=== PATIENT | male | born 1975 | race African-American/Black ===

== ENCOUNTER 2016-06-29 08:43 | Emergency (ER) | payer SELFPAY ==
[2016-06-29 09:10] LABS: BASO % 0.3 % (0.0-1.0); EOS # 0.1 K/mm3 (0.0-0.50); EOS % 1.4 % (0.0-3.0); LARGE UNSTAINED CELL # 0.2 K/mm3 (0.0-0.4); LARGE UNSTAINED CELL % 2.6 % (0.0-4.0); LYMPH # 1.5 K/mm3 (1.5-4.5); LYMPH % 22.5 % (24.0-44.0); MEAN CORPUSCULAR HEMOGLOBIN 31.6 pg (27.0-33.0); MEAN CORPUSCULAR HGB CONC 33.8 g/dl (32.0-36.5); MEAN CORPUSCULAR VOLUME 93.6 fl (80.0-96.0); MONO # 0.4 K/mm3 (0.0-0.8); MONO % 5.4 % (0.0-5.0); NEUTROPHILS # 4.6 K/mm3 (1.8-7.7); NEUTROPHILS % 67.8 % (36.0-66.0); PLATELET COUNT, AUTOMATED 193 k/mm3 (150-450); RED CELL DISTRIBUTION WIDTH 12.8 % (11.5-14.5); WHITE BLOOD COUNT 6.7 K/mm3 (4.0-10.0)
[2016-06-29] MEDS ORDERED: NITROGLYCERIN 0.4 MG SUBL TABLET As Ordered ONE (09:18)
[2016-06-29] MEDS ORDERED: ASPIRIN 81 MG CHEW TABLET As Ordered ONE ×2 (09:18→09:20)
[2016-06-29 09:47] LABS: ANION GAP 7 MEQ/L (8-16); BLOOD UREA NITROGEN 7 MG/DL (7-18); CALCIUM LEVEL 8.9 MG/DL (8.5-10.1); CARBON DIOXIDE LEVEL 29 MEQ/L (21-32); CHLORIDE LEVEL 104 MEQ/L (98-107); CREATININE FOR GFR 1.17 MG/DL (0.70-1.30); GLOMERULAR FILTRATION RATE > 60.0 (>60); GLUCOSE, FASTING 118 MG/DL (70-105); POTASSIUM SERUM 3.7 MEQ/L (3.5-5.1); SODIUM LEVEL 140 MEQ/L (136-145)
--- NOTE | 2016-06-29 10:26 | REP ---
Chest two views HISTORY: Chest pain Comparison: 06/14/2015 The lungs are clear. The heart is normal in size. The pulmonary vasculature is normal in appearance. The bony structure is intact. IMPRESSION: No acute disease. Signed by Marcos Petty MD 06/29/2016 10:16 A
--- NOTE | 2016-06-29 16:55 | EDDOCDS ---
Nurse's Notes [facility] Name: Wagner Vo Age: 41 yrs Sex: Male : 1975 Arrival Date: 06/29/2016 Time: 08:43 Bed OBSERVATION Private MD: Diagnosis: Chest pain, unspecified Presentation: 06/29 08:50 Presenting complaint: Patient states: substernal chest pain x 15 minutes,felt sweaty kpj and short of breath. Aspirin was not taken prior to arrival. Adult Sepsis Screening: The patient does not have new or worsening altered mentation. Patient's respiratory rate is less than 22. Systolic blood pressure is greater than 100. Patient has a qSOFA score of 0- Negative Sepsis Screen. Suicide/Homicide risk assessment- the patient denies having any suicidal and/or homicidal ideations and does not present with any other emotional, behavioral or mental health complaints. Status: Patient is not a cdl service technician or dependent. Transition of care: patient was not received from another setting of care. 08:50 Acuity: KADI Level 2 [facility] 08:50 Method Of Arrival: Walkin/Carried/Asstd [facility] Triage Assessment: 08:52 General: Appears well nourished, well groomed, Behavior is appropriate for age, kpj pleasant. Pain: Location: mid-sternal area Pain currently is 3 out of 10 on a pain scale. Quality of pain is described as heavy, pressure. Pt Declines HIV testing. The patient is triaged at the bedside. See Assessment in Nurses Notes section of ED record. Cardiovascular: Chest pain is described as Pain is 3 out of 10 on a pain scale. quality is pressure, squeezing, is located in substernal area radiates Does not radiate. episodes are continuous began 30 minutes prior to arrival. Historical: - Allergies: No known drug Allergies; - Home Meds: 1. none - PMHx: none; - PSHx: none; - Social history: Smoking status: Patient uses tobacco products, heavy tobacco smoker. No barriers to communication noted, The patient speaks fluent [place] Irish. - Family history: No immediate family members are acutely ill. - : The pt / caregiver states he / she is not on anticoagulants. Home medication list is obtained from the patient. - Exposure Risk Screening:: None identified. Screenin:56 Screening information is obtained from the patient. Fall risk: No risks identified. [facility] Assistance ADL's: requires no assistance with activities of daily living. Abuse/DV Screen: The patient / caregiver reports he/she is: not in a situation that causes fear, pain or injury. Nutritional screening: No deficits noted. Advance Directives: Currently, there is no health care proxy. There is no active DNR order. There is no living will. There is no Power of Director Medical Affairs. Advance directive information has not previously been placed in an [facility] medical record. Further advance directive information is declined. home support is adequate. Assessment: 08:56 General: Appears well nourished, well groomed, Behavior is appropriate for age, kpj pleasant. Pain: Location: mid-sternal area Pain currently is 3 out of 10 on a pain scale. Neurological: Level of Consciousness is awake, alert, Oriented to person, place, time. Cardiovascular: Capillary refill < 3 seconds in bilateral fingers Heart tones present Edema is absent. Pulses are all present. Rhythm is sinus rhythm No ectopy. Chest pain quality is pressure, squeezing, is located in substernal area radiates Does not radiate. episodes are continuous began 30 minutes prior to arrival. Respiratory: Airway is patent Respiratory effort is even, unlabored, Respiratory pattern is regular, symmetrical, Breath sounds with wheezes inspiratory expiratory bilaterally. GI: Abdomen is flat, non- distended Bowel sounds present X 4 quads. Abd is soft and non tender X 4 quads. Derm: Skin is pink, warm & dry. 09:33 General: Appears 3rd NTG administered. reports 2/10 discomfort without change in jmk characteristics of pain. Non radiating and not increasing with deep inspiraation.. 09:39 General: Appears states chest pain is essentially unchanged 2/10, but feels " more jmk relaxed" in chest area. does report a headache, but declined meds when offered.. 10:02 General: Appears Pain free. + fatigue. without resp distress. comfort measures jmk provided. Monitor SR. 11:08 General: Appears in no apparent distress, comfortable, Behavior is appropriate for age, cjh crying, pleasant. Pain: Denies pain. Neurological: Oriented to person, place, time. Cardiovascular: Capillary refill is brisk in bilateral fingers Rhythm is sinus rhythm. Respiratory: Airway is compromised Respiratory effort is even, unlabored, Respiratory pattern is regular, symmetrical. Derm: Skin is pink, warm & dry. 12:56 General: no new problems or complaints, OOB to bathroom gait steady no assist required, [facility] no complaints. meal tray provided, will continue to monitor. 15:00 General: Appears in no apparent distress, comfortable, Behavior is appropriate for age, jmb cooperative. Neurological: Level of Consciousness is awake, alert, obeys commands, Oriented to person, place, time. Respiratory: Airway is patent Respiratory effort is even, unlabored, Respiratory pattern is regular, symmetrical. 16:10 General: Appears in no apparent distress, comfortable, Behavior is appropriate for age, jmb cooperative. Pain: Denies pain. Neurological: Level of Consciousness is awake, alert, obeys commands, Oriented to person, place, time, Speech is normal, Facial symmetry appears normal, Facial symmetry: tongue is midline. Cardiovascular: Capillary refill < 3 seconds Heart tones present Pulses are all present. Rhythm is sinus rhythm No ectopy. Respiratory: Airway is patent Respiratory effort is even, unlabored, Respiratory pattern is regular, symmetrical, Breath sounds are clear bilaterally. GI: Abdomen is non- distended Bowel sounds present X 4 quads. Abd is soft and non tender X 4 quads. Derm: Skin is normal. 16:50 General: Patient instructed on discharge instructions. Patient [facility], patient stated no. IV discontinued per hospital policy. Patient signed discharge instructions. Patient discharged in stable condition. . Vital Signs: 08:52 BP 146 / 97; Pulse 80; Resp 18; Temp 98.3(TE); Pulse Ox 99% on R/A; Weight 72.57 kg [facility] (R); Height 5 ft. 9 in. (175.26 cm) (R); Pain 3/10; 09:31 BP 136 / 77 (auto/); jmk 09:31 Pulse 86 MON; Pulse Ox 94% ; k 16:52 BP 130 / 89; Pulse 69; Resp 18; Temp 97.5(O); Pulse Ox 97% on R/A; Pain 0/10; jmb 08:52 Body Mass Index 23.63 (72.57 kg, 175.26 cm) [facility] Vitals: 08:52 Log In Time: June 29, 2016 at 08:54. [facility] 08:56 Refer to monitor trend for complete vital signs trends. [facility] ED Course: 08:44 Patient visited by Geeta Lopez. mm15 08:44 Patient moved to Waiting mm15 08:48 Patient moved to 5 kpj 08:52 Triage Initiated kpj 08:56 Patient visited by Parag Parra PCA. jrd 08:56 Resting quietly. kpj 08:56 The patient / caregiver is instructed regarding the plan of care and ED course. Patient [facility] has correct armband on for positive identification. Bed in low position. Call light in reach. print finisher on. Pulse ox on. NIBP on. 08:56 EKG done. (by ED staff). Reviewed by Esteban Morfin MD. jrd 08:56 Inserted saline lock: 20 gauge in left antecubital area The patient tolerated the kpj procedure well. by Evangelist Zabala RN. 09:01 Basic Metabolic Profile Sent. kpj 09:01 CBC with Diff Sent. kpj 09:01 Cardiac Injury Profile Sent. kpj 09:01 Troponin Sent. kpj 09:03 Esteban Morfin MD is Attending Physician. br1 09:08 Patient visited by Esteban Morfin MD. br1 09:51 D-Dimer Quant Sent. jmk 10:03 Patient visited by Evangelist Zabala,MARISA. jmk 10:17 [facility] Payment Agreement was scanned into [employer] and attached to record. mm15 10:34 Chest, 2 View (pa\\E\\lat) Returned. EDMS 11:08 Patient visited by Vania Wise RN. cjh 11:38 Patient moved to OBSERVATION kpj 11:39 Patient moved to 5 rs6 11:39 Patient moved to Admit Hold rs6 11:39 Patient moved to OBSERVATION kpj 13:08 Patient visited by Esteban Morfin MD. br1 13:09 Patient visited by Esteban Morfin MD. br1 15:06 Patient visited by Ginger Moura PCA. rs6 15:06 EKG done. (by ED staff). Reviewed by Esteban Morfin MD. rs6 15:19 CARDIAC MARKER PANEL Sent. rs6 16:45 [facility] is Referral Physician. br1 16:45 Jonathan Baptiste MD is Referral Physician. br1 16:52 Discontinued lock intact, bleeding controlled, pressure dressing applied, No jmb redness/swelling at site. No procedures done that require assistance. Administered Medications: 09:20 Drug: Aspirin 324 mg [aspirin 81 mg chewable tablet (4 tabs)] Route: PO; hs1 09:32 Drug: Nitrostat 0.4 mg [Nitrostat 0.4 mg sublingual tablet (1 tabs)] Route: Sublingual; jmk Order Results: Lab Order: Basic Metabolic Profile; SPEC'M 06/29/16 09:00 Test: GLUCOSE, FASTING; Value: 118; Range: 70-105; Abnormal: Above high normal; Units: MG/DL; Status: F Test: BLOOD UREA NITROGEN; Value: 7; Range: 7-18; Units: MG/DL; Status: F Test: CREATININE FOR GFR; Value: 1.17; Range: 0.70-1.30; Units: MG/DL; Status: F Test: GLOMERULAR FILTRATION RATE; Value: > 60.0; Range: >60; Status: F Test: SODIUM LEVEL; Value: 140; Range: 136-145; Units: MEQ/L; Status: F Test: POTASSIUM SERUM; Value: 3.7; Range: 3.5-5.1; Units: MEQ/L; Status: F Test: CHLORIDE LEVEL; Value: 104; Range: 98-107; Units: MEQ/L; Status: F Test: CARBON DIOXIDE LEVEL; Value: 29; Range: 21-32; Units: MEQ/L; Status: F Test: ANION GAP; Value: 7; Range: 8-16; Abnormal: Below low normal; Units: MEQ/L; Status: F Test: CALCIUM LEVEL; Value: 8.9; Range: 8.5-10.1; Units: MG/DL; Status: F Test Note: ; Units are mL/min/1.73 m2 Chronic Kidney Disease Staging per NKF: Stage I & II GFR >=60 Normal to Mildly Decreased Stage III GFR 30-59 Moderately Decreased Stage IV GFR 15-29 Severely Decreased Stage V GFR <15 Very Little GFR Left ESRD GFR <15 on LEAD DATABASE ADMINISTRATOR Lab Order: CBC with Diff; SPEC'M 06/29/16 09:00 Test: WHITE BLOOD COUNT; Value: 6.7; Range: 4.0-10.0; Units: K/mm3; Status: F Test: RED BLOOD COUNT; Value: 5.36; Range: 4.30-6.10; Units: M/mm3; Status: F Test: HEMOGLOBIN; Value: 16.9; Range: 14.0-18.0; Units: g/dl; Status: F Test: HEMATOCRIT; Value: 50.2; Range: 42.0-52.0; Units: %; Status: F Test: MEAN CORPUSCULAR VOLUME; Value: 93.6; Range: 80.0-96.0; Units: fl; Status: F Test: MEAN CORPUSCULAR HEMOGLOBIN; Value: 31.6; Range: 27.0-33.0; Units: pg; Status: F Test: MEAN CORPUSCULAR HGB CONC; Value: 33.8; Range: 32.0-36.5; Units: g/dl; Status: F Test: RED CELL DISTRIBUTION WIDTH; Value: 12.8; Range: 11.5-14.5; Units: %; Status: F Test: PLATELET COUNT, AUTOMATED; Value: 193; Range: 150-450; Units: k/mm3; Status: F Test: NEUTROPHILS %; Value: 67.8; Range: 36.0-66.0; Abnormal: Above high normal; Units: %; Status: F Test: LYMPH %; Value: 22.5; Range: 24.0-44.0; Abnormal: Below low normal; Units: %; Status: F Test: MONO %; Value: 5.4; Range: 0.0-5.0; Abnormal: Above high normal; Units: %; Status: F Test: EOS %; Value: 1.4; Range: 0.0-3.0; Units: %; Status: F Test: BASO %; Value: 0.3; Range: 0.0-1.0; Units: %; Status: F Test: LARGE UNSTAINED CELL %; Value: 2.6; Range: 0.0-4.0; Units: %; Status: F Test: NEUTROPHILS #; Value: 4.6; Range: 1.8-7.7; Units: K/mm3; Status: F Test: LYMPH #; Value: 1.5; Range: 1.5-4.5; Units: K/mm3; Status: F Test: MONO #; Value: 0.4; Range: 0.0-0.8; Units: K/mm3; Status: F Test: EOS #; Value: 0.1; Range: 0.0-0.50; Units: K/mm3; Status: F Test: BASO #; Value: 0.0; Range: 0.0-0.2; Units: K/mm3; Status: F Test: LARGE UNSTAINED CELL #; Value: 0.2; Range: 0.0-0.4; Units: K/mm3; Status: F Lab Order: Cardiac Injury Profile; [facility] 09:00 Test: CPK CREATINE PHOSPHOKINASE; Value: 192; Range: 39-308; Units: U/L; Status: F Test: CK-MB VALUE MASS; Value: 1.8; Range: 0.0-3.6; Units: NG/ML; Status: F Test: MB/CK RELATIVE INDEX; Value: 0.93; Range: < OR =4; Status: F Test Note: ; DIAGNOSIS CRITERIA MMB ng/ml Relative Index (RI) NON-AMI < or = 5 N/A WOLF ZONE > 5 < or = 4 AMI > 5 > 4 Lab Order: Troponin; 06/29/16 09:00 Test: TROPONIN I; Value: < 0.02; Range: < 0.10; Units: NG/ML; Status: F Test Note: ; Troponin I Reference Interval for [employer] LOCI: 99th Percentile= 0.00-0.045 ng/ml Risk Stratification: <= 0.10 ng/ml Decreased Risk for Adverse Clinical Events. 0.10-1.50 ng/ml Increased Risk for Adverse Clinical Events. Evaluation of additional criterion and/or repeat testing in 2-6 hours is suggested to rule out myocardial damage. >= 1.50 ng/ml Indicative of Myocardial Injury. Lab Order: D-Dimer Quant; 06/29/16 09:00 Test: D-DIMER QUANT; Value: < 270.0; Range: <500; Units: ng/ml; Status: F Lab Order: CARDIAC MARKER PANEL; [facility] 06/29/16 15:19 Test: CPK CREATINE PHOSPHOKINASE; Value: 176; Range: 39-308; Units: U/L; Status: F Test: CK-MB VALUE MASS; Value: 1.4; Range: 0.0-3.6; Units: NG/ML; Status: F Test: MB/CK RELATIVE INDEX; Value: 0.79; Range: < OR =4; Status: F Test: TROPONIN I; Value: < 0.02; Range: < 0.10; Units: NG/ML; Status: F Test Note: ; DIAGNOSIS CRITERIA MMB ng/ml Relative Index (RI) NON-AMI < or = 5 N/A WOLF ZONE > 5 < or = 4 AMI > 5 > 4 Radiology Order: Chest, 2 View (pa\\E\\lat) Test: Chest, 2 View (pa\\E\\lat) REASON FOR EXAMINATION: Chest Pain; Chest two views; ; HISTORY: Chest pain; ; Comparison: 06/14/2015; ; The lungs are clear. The heart is normal in size. The pulmonary vasculature is; normal in appearance. The bony structure is intact.; ; IMPRESSION: No acute disease.; ; ; Signed by; Marcos Petty MD 06/29/2016 10:16 A; Outcome: 16:45 Discharge ordered by Provider. br1 16:52 Discharge Assessment: Patient awake, alert and oriented x 3. No cognitive and/or jmb functional deficits noted. Patient verbalized understanding of disposition instructions. Patient awake and alert. obeys commands, Oriented to person, place and time. Patient verbalized understanding of disposition instructions. Patient has no functional deficits. patient administered narcotics - no. The following High Risk Discharge criteria are identified: None. Discharged to home ambulatory, with significant other. Condition: stable Condition: improved. Discharge instructions given to patient, Instructed on discharge instructions, follow up and referral plans. Demonstrated understanding of instructions, Pt was receptive of discharge instructions/ teaching. No special radiology studies were completed. Property sent home with patient. 16:53 Patient left the ED. jmb Signatures: Dispatcher [employer] EDMS Debbie Portillo RN Evangelist DeckerRN Esteban Henderson MD MD br1 Dominique Vasques RN RN hs1 Vania Wise RN RN [facility] Geeta Lopez mm15 Yoni AguiarRN RN jmb Parag Parra, WELDER FITTER WELDER FITTER jrd Moura, Ginger, WELDER FITTER WELDER FITTER rs6 MTDD
--- NOTE | 2016-06-29 16:55 | EDDOCDS ---
Physician Documentation [facility] Name: Wagner Vo Age: 41 yrs Sex: Male : 1975 Arrival Date: 06/29/2016 Time: 08:43 Bed OBSERVATION Private MD: Disposition: 06/29/16 16:45 Discharged to Home/Self Care. Impression: Chest pain, unspecified. - Condition is Stable. - Discharge Instructions: Nonspecific Chest Pain, Smoking Cessation. - Medication Reconciliation, Local Pharmacy Hours form. - Follow up: [facility]; When: 2 - 3 days; Reason: Recheck today's complaints. Follow up: Jonathan Baptiste MD; When: 2 - 3 days; Reason: Recheck today's complaints. - Problem is new. - Symptoms are resolved. - Notes: You were seen in the ED for chest pain. Bloodwork along with EKG of the heart and chest Xray showed no acute findings at this time. We have consulted with Cardiology as well. As you are feeling better you may return home to follow up with a primary care doctor as well as Cardiology for further evaluation and treatment. Please call the [facility] and Dr. Baptiste of Cardiology to arrange these appointments. Return to the ED for any return of chest pain, trouble breathing, lightheadedness, loss of consciousness, or any other concerns. Historical: - Allergies: No known drug Allergies; - Home Meds: 1. none - PMHx: none; - PSHx: none; - Social history: Smoking status: Patient uses tobacco products, heavy tobacco smoker. No barriers to communication noted, The patient speaks fluent Finnish. - Family history: No immediate family members are acutely ill. - : The pt / caregiver states he / she is not on anticoagulants. Home medication list is obtained from the patient. - Exposure Risk Screening:: None identified. Vital Signs: 06/29 08:52 BP 146 / 97; Pulse 80; Resp 18; Temp 98.3(TE); Pulse Ox 99% on R/A; Weight 72.57 kg / kpj 159.99 lbs (R); Height 5 ft. 9 in. (175.26 cm) (R); Pain 3/10; 09:31 BP 136 / 77 (auto/); jmk 09:31 Pulse 86 MON; Pulse Ox 94% ; jmk 16:52 BP 130 / 89; Pulse 69; Resp 18; Temp 97.5(O); Pulse Ox 97% on R/A; Pain 0/10; jmb 08:52 Body Mass Index 23.63 (72.57 kg, 175.26 cm) kpj MDM: 08:49 ECG WITH READING ER PHYS+CARDIAG ordered. EDMS 08:54 Balloon Design Printer/Pulse Ox/q 30 min VS ordered. br1 08:54 IV Saline Lock ordered. br1 08:54 Rhythm Strip to chart ordered. br1 08:54 Undress patient appropriately for examination ordered. br1 08:55 Basic Metabolic Profile Ordered. EDMS 08:56 CBC with Diff Ordered. EDMS 08:56 Cardiac Injury Profile Ordered. EDMS 08:56 Troponin Ordered. EDMS 08:56 Chest, 2 View (pa\E\lat) Ordered. EDMS 09:09 Aspirin 324 mg PO once ordered. br1 09:09 Nitrostat 0.4 mg Sublingual every 5 minutes; hold if SBP<90mmHg.Document Pain Score br1 Response to Each Dose x3 ordered. 09:24 CBC with Diff Reviewed. br1 09:35 Financial registration complete. mm15 09:45 D-Dimer Quant Ordered. EDMS 10:17 [facility] Payment Agreement was scanned into [employer] and attached to record. mm15 11:08 Basic Metabolic Profile Reviewed. br1 11:08 Cardiac Injury Profile Reviewed. br1 11:08 Troponin Reviewed. br1 11:08 D-Dimer Quant Reviewed. br1 11:08 Chest, 2 View (pa\E\lat) Reviewed. br1 11:10 Admit to ED Observation status ordered. br1 11:10 Repeat EKG (put time details section) ordered. br1 11:10 Redraw CIP &Troponin (put time in details section) ordered. br1 11:11 REGULAR+DIET ordered. EDMS 11:36 Redraw CIP &Troponin (put time in details section) complete. rs6 11:36 Repeat EKG (put time details section) complete. rs6 11:38 Admit to ED Observation status complete. kpj 11:38 CARDIAC MARKER PANEL Ordered. EDMS 11:39 ECG WITH READING ER PHYS ordered. EDMS 16:12 CARDIAC MARKER PANEL Reviewed. br1 Administered Medications: 09:20 Drug: Aspirin 324 mg [aspirin 81 mg chewable tablet (4 tabs)] Route: PO; hs1 09:32 Drug: Nitrostat 0.4 mg [Nitrostat 0.4 mg sublingual tablet (1 tabs)] Route: Sublingual; brittny Signatures: Dispatcher [employer] Debbie Covarrubias, RN RN Esteban Tyelr MD MD br1 Geeta Lopez mm15 Yoni Aguiar RN RN Ginger Joshi, ZACH POLISH MAKER rs6 Evangelist Zabala RNk Dominique Vasques RN hs1 The chart was reviewed and I authenticate all verbal orders and agree with the evaluation and treatment provided.Attachments: 10:17 [facility] Payment Agreement mm15 MTDD
--- NOTE | 2016-06-29 21:51 | ECGEPIP ---
Stationary ECG Study [facility] - ED Test Date: 2016-06-29 Pat Name: MARGUERITE GARCIA Department: Room: - Gender: M [employer]: KEAGAN : 1975 Requested By: LISS Rodriguez Order Number: [id number] Reading MD: Tammi Benjamin Measurements Intervals [place] Rate: 80 P: 70 TX: 180 QRS: 36 QRSD: 86 T: 47 QT: 371 QTc: 428 Interpretive Statements SINUS RHYTHM POSSIBLE RIGHT VENTRICULAR CONDUCTION DELAY NO PRIOR FOR COMPARISON Electronically Signed On 06-29-2016 21:50:38 EST by Tammi Benjamin
--- NOTE | 2016-07-01 17:54 | EDDOCDS ---
Nurse's Notes [facility] Name: Wagner Vo Age: 41 yrs Sex: Male : 1975 Arrival Date: 06/29/2016 Time: 08:43 Bed OBSERVATION Private MD: Diagnosis: Chest pain, unspecified Presentation: 06/29 08:50 Presenting complaint: Patient states: substernal chest pain x 15 minutes,felt sweaty kpj and short of breath. Aspirin was not taken prior to arrival. Adult Sepsis Screening: The patient does not have new or worsening altered mentation. Patient's respiratory rate is less than 22. Systolic blood pressure is greater than 100. Patient has a qSOFA score of 0- Negative Sepsis Screen. Suicide/Homicide risk assessment- the patient denies having any suicidal and/or homicidal ideations and does not present with any other emotional, behavioral or mental health complaints. Status: Patient is not a customer service teller or dependent. Transition of care: patient was not received from another setting of care. 08:50 Acuity: KADI Level 2 [facility] 08:50 Method Of Arrival: Walkin/Carried/Asstd [facility] Triage Assessment: 08:52 General: Appears well nourished, well groomed, Behavior is appropriate for age, kpj pleasant. Pain: Location: mid-sternal area Pain currently is 3 out of 10 on a pain scale. Quality of pain is described as heavy, pressure. Pt Declines HIV testing. The patient is triaged at the bedside. See Assessment in Nurses Notes section of ED record. Cardiovascular: Chest pain is described as Pain is 3 out of 10 on a pain scale. quality is pressure, squeezing, is located in substernal area radiates Does not radiate. episodes are continuous began 30 minutes prior to arrival. Historical: - Allergies: No known drug Allergies; - Home Meds: 1. none - PMHx: none; - PSHx: none; - Social history: Smoking status: Patient uses tobacco products, heavy tobacco smoker. No barriers to communication noted, The patient speaks fluent Swedish. - Family history: No immediate family members are acutely ill. - : The pt / caregiver states he / she is not on anticoagulants. Home medication list is obtained from the patient. - Exposure Risk Screening:: None identified. Screenin:56 Screening information is obtained from the patient. Fall risk: No risks identified. [facility] Assistance ADL's: requires no assistance with activities of daily living. Abuse/DV Screen: The patient / caregiver reports he/she is: not in a situation that causes fear, pain or injury. Nutritional screening: No deficits noted. Advance Directives: Currently, there is no health care proxy. There is no active DNR order. There is no living will. There is no Power of Filter Tank Tender Helper Head. Advance directive information has not previously been placed in an [facility] medical record. Further advance directive information is declined. home support is adequate. Assessment: 08:56 General: Appears well nourished, well groomed, Behavior is appropriate for age, kpj pleasant. Pain: Location: mid-sternal area Pain currently is 3 out of 10 on a pain scale. Neurological: Level of Consciousness is awake, alert, Oriented to person, place, time. Cardiovascular: Capillary refill < 3 seconds in bilateral fingers Heart tones present Edema is absent. Pulses are all present. Rhythm is sinus rhythm No ectopy. Chest pain quality is pressure, squeezing, is located in substernal area radiates Does not radiate. episodes are continuous began 30 minutes prior to arrival. Respiratory: Airway is patent Respiratory effort is even, unlabored, Respiratory pattern is regular, symmetrical, Breath sounds with wheezes inspiratory expiratory bilaterally. GI: Abdomen is flat, non- distended Bowel sounds present X 4 quads. Abd is soft and non tender X 4 quads. Derm: Skin is pink, warm & dry. 09:33 General: Appears 3rd NTG administered. reports 2/10 discomfort without change in jmk characteristics of pain. Non radiating and not increasing with deep inspiraation.. 09:39 General: Appears states chest pain is essentially unchanged 2/10, but feels " more jmk relaxed" in chest area. does report a headache, but declined meds when offered.. 10:02 General: Appears Pain free. + fatigue. without resp distress. comfort measures jmk provided. Monitor SR. 11:08 General: Appears in no apparent distress, comfortable, Behavior is appropriate for age, cjh crying, pleasant. Pain: Denies pain. Neurological: Oriented to person, place, time. Cardiovascular: Capillary refill is brisk in bilateral fingers Rhythm is sinus rhythm. Respiratory: Airway is compromised Respiratory effort is even, unlabored, Respiratory pattern is regular, symmetrical. Derm: Skin is pink, warm & dry. 12:56 General: no new problems or complaints, OOB to bathroom gait steady no assist required, [facility] no complaints. meal tray provided, will continue to monitor. 15:00 General: Appears in no apparent distress, comfortable, Behavior is appropriate for age, jmb cooperative. Neurological: Level of Consciousness is awake, alert, obeys commands, Oriented to person, place, time. Respiratory: Airway is patent Respiratory effort is even, unlabored, Respiratory pattern is regular, symmetrical. 16:10 General: Appears in no apparent distress, comfortable, Behavior is appropriate for age, jmb cooperative. Pain: Denies pain. Neurological: Level of Consciousness is awake, alert, obeys commands, Oriented to person, place, time, Speech is normal, Facial symmetry appears normal, Facial symmetry: tongue is midline. Cardiovascular: Capillary refill < 3 seconds Heart tones present Pulses are all present. Rhythm is sinus rhythm No ectopy. Respiratory: Airway is patent Respiratory effort is even, unlabored, Respiratory pattern is regular, symmetrical, Breath sounds are clear bilaterally. GI: Abdomen is non- distended Bowel sounds present X 4 quads. Abd is soft and non tender X 4 quads. Derm: Skin is normal. 16:50 General: Patient instructed on discharge instructions. Patient asked if there were any [facility] questions regarding discharge, patient stated no. IV discontinued per hospital policy. Patient signed discharge instructions. Patient discharged in stable condition. . Vital Signs: 08:52 BP 146 / 97; Pulse 80; Resp 18; Temp 98.3(TE); Pulse Ox 99% on R/A; Weight 72.57 kg [facility] (R); Height 5 ft. 9 in. (175.26 cm) (R); Pain 3/10; 09:31 BP 136 / 77 (auto/); jmk 09:31 Pulse 86 MON; Pulse Ox 94% ; k 16:52 BP 130 / 89; Pulse 69; Resp 18; Temp 97.5(O); Pulse Ox 97% on R/A; Pain 0/10; jmb 08:52 Body Mass Index 23.63 (72.57 kg, 175.26 cm) [facility] Vitals: 08:52 Log In Time: June 29, 2016 at 08:54. [facility] 08:56 Refer to monitor trend for complete vital signs trends. [facility] ED Course: 08:44 Patient visited by Geeta Lopez. mm15 08:44 Patient moved to Waiting mm15 08:48 Patient moved to 5 kpj 08:52 Triage Initiated kpj 08:56 Patient visited by Parag Parra PCA. jrd 08:56 Resting quietly. kpj 08:56 The patient / caregiver is instructed regarding the plan of care and ED course. Patient [facility] has correct armband on for positive identification. Bed in low position. Call light in reach. monitoring analyst on. Pulse ox on. NIBP on. 08:56 EKG done. (by ED staff). Reviewed by Liss Morfin MD. jrd 08:56 Inserted saline lock: 20 gauge in left antecubital area The patient tolerated the kpj procedure well. by Evangelist Zabala RN. 09:01 Basic Metabolic Profile Sent. kpj 09:01 CBC with Diff Sent. kpj 09:01 Cardiac Injury Profile Sent. kpj 09:01 Troponin Sent. kpj 09:03 Liss Morfin MD is Attending Physician. br1 09:08 Patient visited by Liss Morfin MD. br1 09:51 D-Dimer Quant Sent. jmk 10:03 Patient visited by Evangelist Zabala,MARISA. jmk 10:17 [facility] Payment Agreement was scanned into Flo[employer] and attached to record. mm15 10:34 Chest, 2 View (pa\\E\\lat) Returned. EDMS 11:08 Patient visited by aVnia Wise RN. cjh 11:38 Patient moved to OBSERVATION kpj 11:39 Patient moved to 5 rs6 11:39 Patient moved to Admit Hold rs6 11:39 Patient moved to OBSERVATION kpj 13:08 Patient visited by Liss Morfin MD. br1 13:09 Patient visited by Liss Morfin MD. br1 15:06 Patient visited by Ginger Moura PCA. rs6 15:06 EKG done. (by ED staff). Reviewed by Liss Morfin MD. rs6 15:19 CARDIAC MARKER PANEL Sent. rs6 16:45 [facility] is Referral Physician. br1 16:45 Jonathan Baptiste MD is Referral Physician. br1 16:52 Discontinued lock intact, bleeding controlled, pressure dressing applied, No jmb redness/swelling at site. No procedures done that require assistance. 22:11 EKG-ADULT Returned. EDMS 06/30 13:35 T-Sheet-- Draft Copy was scanned into Floobits and attached to record. 13:35 ECG/EKG was scanned into [employer] and attached to record. gb 13:35 Radiology Report was scanned into [employer] and attached to record. gb Administered Medications: 06/29 09:20 Drug: Aspirin 324 mg [aspirin 81 mg chewable tablet (4 tabs)] Route: PO; hs1 09:32 Drug: Nitrostat 0.4 mg [Nitrostat 0.4 mg sublingual tablet (1 tabs)] Route: Sublingual; jmk Order Results: Lab Order: Basic Metabolic Profile; SPEC'M 06/29/16 09:00 Test: GLUCOSE, FASTING; Value: 118; Range: 70-105; Abnormal: Above high normal; Units: MG/DL; Status: F Test: BLOOD UREA NITROGEN; Value: 7; Range: 7-18; Units: MG/DL; Status: F Test: CREATININE FOR GFR; Value: 1.17; Range: 0.70-1.30; Units: MG/DL; Status: F Test: GLOMERULAR FILTRATION RATE; Value: > 60.0; Range: >60; Status: F Test: SODIUM LEVEL; Value: 140; Range: 136-145; Units: MEQ/L; Status: F Test: POTASSIUM SERUM; Value: 3.7; Range: 3.5-5.1; Units: MEQ/L; Status: F Test: CHLORIDE LEVEL; Value: 104; Range: 98-107; Units: MEQ/L; Status: F Test: CARBON DIOXIDE LEVEL; Value: 29; Range: 21-32; Units: MEQ/L; Status: F Test: ANION GAP; Value: 7; Range: 8-16; Abnormal: Below low normal; Units: MEQ/L; Status: F Test: CALCIUM LEVEL; Value: 8.9; Range: 8.5-10.1; Units: MG/DL; Status: F Test Note: ; Units are mL/min/1.73 m2 Chronic Kidney Disease Staging per NKF: Stage I & II GFR >=60 Normal to Mildly Decreased Stage III GFR 30-59 Moderately Decreased Stage IV GFR 15-29 Severely Decreased Stage V GFR <15 Very Little GFR Left ESRD GFR <15 on FARM OPERATIONS TECHNICAL DIRECTOR Lab Order: CBC with Diff; SPEC'M 06/29/16 09:00 Test: WHITE BLOOD COUNT; Value: 6.7; Range: 4.0-10.0; Units: K/mm3; Status: F Test: RED BLOOD COUNT; Value: 5.36; Range: 4.30-6.10; Units: M/mm3; Status: F Test: HEMOGLOBIN; Value: 16.9; Range: 14.0-18.0; Units: g/dl; Status: F Test: HEMATOCRIT; Value: 50.2; Range: 42.0-52.0; Units: %; Status: F Test: MEAN CORPUSCULAR VOLUME; Value: 93.6; Range: 80.0-96.0; Units: fl; Status: F Test: MEAN CORPUSCULAR HEMOGLOBIN; Value: 31.6; Range: 27.0-33.0; Units: pg; Status: F Test: MEAN CORPUSCULAR HGB CONC; Value: 33.8; Range: 32.0-36.5; Units: g/dl; Status: F Test: RED CELL DISTRIBUTION WIDTH; Value: 12.8; Range: 11.5-14.5; Units: %; Status: F Test: PLATELET COUNT, AUTOMATED; Value: 193; Range: 150-450; Units: k/mm3; Status: F Test: NEUTROPHILS %; Value: 67.8; Range: 36.0-66.0; Abnormal: Above high normal; Units: %; Status: F Test: LYMPH %; Value: 22.5; Range: 24.0-44.0; Abnormal: Below low normal; Units: %; Status: F Test: MONO %; Value: 5.4; Range: 0.0-5.0; Abnormal: Above high normal; Units: %; Status: F Test: EOS %; Value: 1.4; Range: 0.0-3.0; Units: %; Status: F Test: BASO %; Value: 0.3; Range: 0.0-1.0; Units: %; Status: F Test: LARGE UNSTAINED CELL %; Value: 2.6; Range: 0.0-4.0; Units: %; Status: F Test: NEUTROPHILS #; Value: 4.6; Range: 1.8-7.7; Units: K/mm3; Status: F Test: LYMPH #; Value: 1.5; Range: 1.5-4.5; Units: K/mm3; Status: F Test: MONO #; Value: 0.4; Range: 0.0-0.8; Units: K/mm3; Status: F Test: EOS #; Value: 0.1; Range: 0.0-0.50; Units: K/mm3; Status: F Test: BASO #; Value: 0.0; Range: 0.0-0.2; Units: K/mm3; Status: F Test: LARGE UNSTAINED CELL #; Value: 0.2; Range: 0.0-0.4; Units: K/mm3; Status: F Lab Order: Cardiac Injury Profile; [facility]' 06/29/16 09:00 Test: CPK CREATINE PHOSPHOKINASE; Value: 192; Range: 39-308; Units: U/L; Status: F Test: CK-MB VALUE MASS; Value: 1.8; Range: 0.0-3.6; Units: NG/ML; Status: F Test: MB/CK RELATIVE INDEX; Value: 0.93; Range: < OR =4; Status: F Test Note: ; DIAGNOSIS CRITERIA MMB ng/ml Relative Index (RI) NON-AMI < or = 5 N/A WOLF ZONE > 5 < or = 4 AMI > 5 > 4 Lab Order: Troponin; [facility] 06/29/16 09:00 Test: TROPONIN I; Value: < 0.02; Range: < 0.10; Units: NG/ML; Status: F Test Note: ; Troponin I Reference Interval for [employer] LOCI: 99th Percentile= 0.00-0.045 ng/ml Risk Stratification: <= 0.10 ng/ml Decreased Risk for Adverse Clinical Events. 0.10-1.50 ng/ml Increased Risk for Adverse Clinical Events. Evaluation of additional criterion and/or repeat testing in 2-6 hours is suggested to rule out myocardial damage. >= 1.50 ng/ml Indicative of Myocardial Injury. Lab Order: D-Dimer Quant; SPEC 06/29/16 09:00 Test: D-DIMER QUANT; Value: < 270.0; Range: <500; Units: ng/ml; Status: F Lab Order: CARDIAC MARKER PANEL; SPEC'M 06/29/16 15:19 Test: CPK CREATINE PHOSPHOKINASE; Value: 176; Range: 39-308; Units: U/L; Status: F Test: CK-MB VALUE MASS; Value: 1.4; Range: 0.0-3.6; Units: NG/ML; Status: F Test: MB/CK RELATIVE INDEX; Value: 0.79; Range: < OR =4; Status: F Test: TROPONIN I; Value: < 0.02; Range: < 0.10; Units: NG/ML; Status: F Test Note: ; DIAGNOSIS CRITERIA MMB ng/ml Relative Index (RI) NON-AMI < or = 5 N/A WOLF ZONE > 5 < or = 4 AMI > 5 > 4 Radiology Order: EKG-ADULT Test: EKG-ADULT REASON FOR EXAMINATION: Chest Pain; Stationary ECG Study; [facility] - ED; ; Test Date: 2016-06-29; Pat Name: [facility] Department:; Room: -; Gender: Model Maker Scale: KEAGAN; : 1975 Requested By: LISS Rodriguez; Order Number: [id number] Reading MD: Tammi Benjamin; Measurements; Intervals [place]; Rate: 80 P: 70; NM: 180 QRS: 36; QRSD: 86 T: 47; QT: 371; QTc: 428; Interpretive Statements; SINUS RHYTHM; POSSIBLE RIGHT VENTRICULAR CONDUCTION DELAY; NO PRIOR FOR COMPARISON; Electronically Signed On 06-29-2016 21:50:38 EST by Tammi Benjamin; Radiology Order: Chest, 2 View (pa\\E\\lat) Test: Chest, 2 View (pa\\E\\lat) REASON FOR EXAMINATION: Chest Pain; Chest two views; ; HISTORY: Chest pain; ; Comparison: 06/14/2015; ; The lungs are clear. The heart is normal in size. The pulmonary vasculature is; normal in appearance. The bony structure is intact.; ; IMPRESSION: No acute disease.; ; ; Signed by; Marcos Petty MD 06/29/2016 10:16 A; Outcome: 16:45 Discharge ordered by Provider. br1 16:52 Discharge Assessment: Patient awake, alert and oriented x 3. No cognitive and/or jmb functional deficits noted. Patient verbalized understanding of disposition instructions. Patient awake and alert. obeys commands, Oriented to person, place and time. Patient verbalized understanding of disposition instructions. Patient has no functional deficits. patient administered narcotics - no. The following High Risk Discharge criteria are identified: None. Discharged to home ambulatory, with significant other. Condition: stable Condition: improved. Discharge instructions given to patient, Instructed on discharge instructions, follow up and referral plans. Demonstrated understanding of instructions, Pt was receptive of discharge instructions/ teaching. No special radiology studies were completed. Property sent home with patient. 16:53 Patient left the ED. sandra Signatures: Dispatcher [employer] EDMS Debbie Portillo, RN RN Evangelist Triplett,RN RN Ximena Cevallos, Reg Reg Liss Cosby MD MD br1 Dominique Vasques RN RN hs1 Vania Wise,RN RN [facility] Geeta Lopez mm15 Yoni Aguiar,RN RN jmb Parag Parra, TIEING MACHINE OPERATOR TIEING MACHINE OPERATOR jrd Ginger Moura, TIEING MACHINE OPERATOR TIEING MACHINE OPERATOR rs6 Chart Complete MTDD
--- NOTE | 2016-07-01 17:54 | EDDOCDS ---
Physician Documentation [facility] Name: Wagner Vo Age: 41 yrs Sex: Male : 1975 Arrival Date: 06/29/2016 Time: 08:43 Bed OBSERVATION Private MD: Disposition: 06/29/16 16:45 Discharged to Home/Self Care. Impression: Chest pain, unspecified. - Condition is Stable. - Discharge Instructions: Nonspecific Chest Pain, Smoking Cessation. - Medication Reconciliation, Local Pharmacy Hours form. - [facility] up: [facility]; When: 2 - 3 days; Reason: Recheck today's complaints. Follow up: Jonathan Baptiste MD; When: 2 - 3 days; Reason: Recheck today's complaints. - Problem is new. - Symptoms are resolved. - Notes: You were seen in the ED for chest pain. Bloodwork along with EKG of the heart and chest Xray showed no acute findings at this time. We have consulted with Cardiology as well. As you are feeling better you may return home to follow up with a primary care doctor as well as Cardiology for further evaluation and treatment. Please call the [facility] and Dr. Baptiste of Cardiology to arrange these appointments. Return to the ED for any return of chest pain, trouble breathing, lightheadedness, loss of consciousness, or any other concerns. Historical: - Allergies: No known drug Allergies; - Home Meds: 1. none - PMHx: none; - PSHx: none; - Social history: Smoking status: Patient uses tobacco products, heavy tobacco smoker. No barriers to communication noted, The patient speaks fluent Bhutanese. - Family history: No immediate family members are acutely ill. - : The pt / caregiver states he / she is not on anticoagulants. Home medication list is obtained from the patient. - Exposure Risk Screening:: None identified. Vital Signs: 06/29 08:52 BP 146 / 97; Pulse 80; Resp 18; Temp 98.3(TE); Pulse Ox 99% on R/A; Weight 72.57 kg / kpj 159.99 lbs (R); Height 5 ft. 9 in. (175.26 cm) (R); Pain 3/10; 09:31 BP 136 / 77 (auto/); jmk 09:31 Pulse 86 MON; Pulse Ox 94% ; jmk 16:52 BP 130 / 89; Pulse 69; Resp 18; Temp 97.5(O); Pulse Ox 97% on R/A; Pain 0/10; jmb 08:52 Body Mass Index 23.63 (72.57 kg, 175.26 cm) kpj MDM: 08:49 ECG WITH READING ER PHYS+CARDIAG ordered. EDMS 08:54 Gaming Director/Pulse Ox/q 30 min VS ordered. br1 08:54 IV Saline Lock ordered. br1 08:54 Rhythm Strip to chart ordered. br1 08:54 Undress patient appropriately for examination ordered. br1 08:55 Basic Metabolic Profile Ordered. EDMS 08:56 CBC with Diff Ordered. EDMS 08:56 Cardiac Injury Profile Ordered. EDMS 08:56 Troponin Ordered. EDMS 08:56 Chest, 2 View (pa\E\lat) Ordered. EDMS 09:09 Aspirin 324 mg PO once ordered. br1 09:09 Nitrostat 0.4 mg Sublingual every 5 minutes; hold if SBP<90mmHg.Document Pain Score br1 Response to Each Dose x3 ordered. 09:24 CBC with Diff Reviewed. br1 09:35 Financial registration complete. mm15 09:45 D-Dimer Quant Ordered. EDMS 10:17 [facility] Payment Agreement was scanned into compareit4me and attached to record. mm15 11:08 Basic Metabolic Profile Reviewed. br1 11:08 Cardiac Injury Profile Reviewed. br1 11:08 Troponin Reviewed. br1 11:08 D-Dimer Quant Reviewed. br1 11:08 Chest, 2 View (pa\E\lat) Reviewed. br1 11:10 Admit to ED Observation status ordered. br1 11:10 Repeat EKG (put time details section) ordered. br1 11:10 Redraw CIP &Troponin (put time in details section) ordered. br1 11:11 REGULAR+DIET ordered. EDMS 11:36 Redraw CIP &Troponin (put time in details section) complete. rs6 11:36 Repeat EKG (put time details section) complete. rs6 11:38 Admit to ED Observation status complete. kpj 11:38 CARDIAC MARKER PANEL Ordered. EDMS 11:39 ECG WITH READING ER PHYS ordered. EDMS 16:12 CARDIAC MARKER PANEL Reviewed. br1 06/30 13:35 T-Sheet-- Draft Copy was scanned into compare[employer]me and attached to record. gb 13:35 ECG/EKG was scanned into [employer] and attached to record. gb 13:35 Radiology Report was scanned into [employer] and attached to record. gb Administered Medications: 06/29 09:20 Drug: Aspirin 324 mg [aspirin 81 mg chewable tablet (4 tabs)] Route: PO; hs1 09:32 Drug: Nitrostat 0.4 mg [Nitrostat 0.4 mg sublingual tablet (1 tabs)] Route: Sublingual; brittny Signatures: Dispatcher [employer] EDMS Debbie Portillo, RN RN Ximena Fernandez, Reg Reg gb Esteban Morfin MD MD br1 Geeta Lopez mm15 Yoni Aguiar,RN RN Ginger Joshi PCA TELECINE OPERATOR rs6 Evangelist Zabala RN, Hannah RN hs1 The chart was reviewed and I authenticate all verbal orders and agree with the evaluation and treatment provided.Attachments: 10:17 [facility] Payment Agreement mm15 06/30 13:35 T-Sheet-- Draft Copy gb 13:35 ECG/EKG gb Chart Complete MTDD
--- NOTE | 2016-07-01 17:54 | EDDOCDS ---
Physician Documentation [facility] Name: Wagner Vo Age: 41 yrs Sex: Male : 1975 Arrival Date: 06/29/2016 Time: 08:43 Bed OBSERVATION Private MD: Disposition: 06/29/16 16:45 Discharged to Home/Self Care. Impression: Chest pain, unspecified. - Condition is Stable. - Discharge Instructions: Nonspecific Chest Pain, Smoking Cessation. - Medication Reconciliation, Local Pharmacy Hours form. - [facility]; When: 2 - 3 days; Reason: Recheck today's complaints. Follow up: Jonathan Baptiste MD; When: 2 - 3 days; Reason: Recheck today's complaints. - Problem is new. - Symptoms are resolved. - Notes: You were seen in the ED for chest pain. Bloodwork along with EKG of the heart and chest Xray showed no acute findings at this time. We have consulted with Cardiology as well. As you are feeling better you may return home to follow up with a primary care doctor as well as Cardiology for further evaluation and treatment. Please call the [facility] and Dr. Baptiste of Cardiology to arrange these appointments. Return to the ED for any return of chest pain, trouble breathing, lightheadedness, loss of consciousness, or any other concerns. Historical: - Allergies: No known drug Allergies; - Home Meds: 1. none - PMHx: none; - PSHx: none; - Social history: Smoking status: Patient uses tobacco products, heavy tobacco smoker. No barriers to communication noted, The patient speaks fluent Afghan. - Family history: No immediate family members are acutely ill. - : The pt / caregiver states he / she is not on anticoagulants. Home medication list is obtained from the patient. - Exposure Risk Screening:: None identified. Vital Signs: 06/29 08:52 BP 146 / 97; Pulse 80; Resp 18; Temp 98.3(TE); Pulse Ox 99% on R/A; Weight 72.57 kg / kpj 159.99 lbs (R); Height 5 ft. 9 in. (175.26 cm) (R); Pain 3/10; 09:31 BP 136 / 77 (auto/); jmk 09:31 Pulse 86 MON; Pulse Ox 94% ; jmk 16:52 BP 130 / 89; Pulse 69; Resp 18; Temp 97.5(O); Pulse Ox 97% on R/A; Pain 0/10; jmb 08:52 Body Mass Index 23.63 (72.57 kg, 175.26 cm) kpj MDM: 08:49 ECG WITH READING ER PHYS+CARDIAG ordered. EDMS 08:54 Scalper Operator/Pulse Ox/q 30 min VS ordered. br1 08:54 IV Saline Lock ordered. br1 08:54 Rhythm Strip to chart ordered. br1 08:54 Undress patient appropriately for examination ordered. br1 08:55 Basic Metabolic Profile Ordered. EDMS 08:56 CBC with Diff Ordered. EDMS 08:56 Cardiac Injury Profile Ordered. EDMS 08:56 Troponin Ordered. EDMS 08:56 Chest, 2 View (pa\E\lat) Ordered. EDMS 09:09 Aspirin 324 mg PO once ordered. br1 09:09 Nitrostat 0.4 mg Sublingual every 5 minutes; hold if SBP<90mmHg.Document Pain Score br1 Response to Each Dose x3 ordered. 09:24 CBC with Diff Reviewed. br1 09:35 Financial registration complete. mm15 09:45 D-Dimer Quant Ordered. EDMS 10:17 [facility] Payment Agreement was scanned into Bill.Forward and attached to record. mm15 11:08 Basic Metabolic Profile Reviewed. br1 11:08 Cardiac Injury Profile Reviewed. br1 11:08 Troponin Reviewed. br1 11:08 D-Dimer Quant Reviewed. br1 11:08 Chest, 2 View (pa\E\lat) Reviewed. br1 11:10 Admit to ED Observation status ordered. br1 11:10 Repeat EKG (put time details section) ordered. br1 11:10 Redraw CIP &Troponin (put time in details section) ordered. br1 11:11 REGULAR+DIET ordered. EDMS 11:36 Redraw CIP &Troponin (put time in details section) complete. rs6 11:36 Repeat EKG (put time details section) complete. rs6 11:38 Admit to ED Observation status complete. kpj 11:38 CARDIAC MARKER PANEL Ordered. EDMS 11:39 ECG WITH READING ER PHYS ordered. EDMS 16:12 CARDIAC MARKER PANEL Reviewed. br1 06/30 13:35 T-Sheet-- Draft Copy was scanned into Bill.Forward and attached to record. gb 13:35 ECG/EKG was scanned into [employer] and attached to record. gb 13:35 Radiology Report was scanned into [employer] and attached to record. gb Administered Medications: 06/29 09:20 Drug: Aspirin 324 mg [aspirin 81 mg chewable tablet (4 tabs)] Route: PO; hs1 09:32 Drug: Nitrostat 0.4 mg [Nitrostat 0.4 mg sublingual tablet (1 tabs)] Route: Sublingual; brittny Signatures: Dispatcher [employer] EDMS Debbie Portillo, RN RN Ximena Fernandez, Reg Reg gb Esteban Morfin MD MD br1 Geeta Lopez mm15 Yoni Aguiar,RN RN Ginger Joshi PCA WOOD TREATING INSPECTOR rs6 Evangelist Zabala RN, Hannah RN hs1 The chart was reviewed and I authenticate all verbal orders and agree with the evaluation and treatment provided.Attachments: 10:17 [facility] Payment Agreement mm15 06/30 13:35 T-Sheet-- Draft Copy gb 13:35 ECG/EKG gb Chart Complete MTDD
--- NOTE | 2016-07-01 20:03 | ECGEPIP ---
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
== END 2016-06-29 16:53 | disposition home or self-care (01) ==
LOC: M ED 08:43
DX: R07.9 Chest pain, unspecified (principal); F17.210 Nicotine dependence, cigarettes, uncomplicated

== ENCOUNTER 2018-01-19 08:19 | Emergency (ER) | payer OTHER, SELFPAY | END 2018-01-19 09:29 | disposition home or self-care (01) | LOC: M ED 08:19 | DX: M75.102 Unspecified rotator cuff tear or rupture of left shoulder, not specified as traumatic (principal); X58.XXXA Exposure to other specified factors, initial encounter; Y92.59 Other trade areas as the place of occurrence of the external cause; Y93.89 Activity, other specified; Y99.0 Civilian activity done for income or pay; J44.9 Chronic obstructive pulmonary disease, unspecified; F17.210 Nicotine dependence, cigarettes, uncomplicated | CPT/HCPCS: 73030 ==

== ENCOUNTER 2018-07-01 17:26 | Emergency (ER) | payer MEDICAID, OTHER, SELFPAY ==
[~2018-07-01] VITALS: Ht 175.3 cm; Wt 72.7 kg
[2018-07-01 17:26] VITALS: BP 129/64
[~2018-07-01 17:26] MED LIST: IBUP-1022 PO; NORCOTAB PO; ROBA500T PO; VENTAER INH
== END 2018-07-01 19:22 | disposition left against medical advice (07) ==
LOC: M ED 17:26
DX: Z53.21 Procedure and treatment not carried out due to patient leaving prior to being seen by health care provider (principal)

== ENCOUNTER 2018-07-03 13:46 | Emergency (ER) | payer MEDICAID, OTHER ==
[~2018-07-03] VITALS: Ht 175.3 cm; Wt 72.7 kg
[2018-07-03] MEDS ORDERED: IBUP1TAB6 (13:51)
[2018-07-03] MEDS ORDERED: diphenhydrAMINE INJ 50MG/ML VIAL (J1200) IV STA (14:23)
[2018-07-03] MEDS ORDERED: NS 1,000 ML IV ONE (14:30)
[2018-07-03] MEDS ORDERED: KETOROLAC 30 MG/ML VIAL (J1885) IV ONE (14:30)
[2018-07-03] MEDS ORDERED: METOCLOPRAMIDE INJ 10MG/2ML VIAL (J2765) IV ONE (14:30)
--- NOTE | 2018-07-03 14:52 | REP ---
CT Head without contrast HISTORY: Right side headache COMPARISON: 10/09/2013 There is no intraparenchymal hemorrhage, acute infarct, mass or midline shift. The ventricular system is normal in appearance. There is no extra cerebral collection. There is no fracture. The visualized sinuses are clear. IMPRESSION: There is no intracranial lesion. Electronically Signed by Marcos Petty MD 07/03/2018 02:44 P
[2018-07-03 15:07] LABS: BASO % 0.3 % (0.0-1.0); EOS # 0.2 10^3/uL (0.0-0.50); EOS % 2.6 % (0.0-3.0); HEMATOCRIT 46.5 % (42.0-52.0); HEMOGLOBIN 15.4 g/dl (13.5-17.5); LYMPH # 1.8 10^3/uL (1.5-4.5); LYMPH % 25.7 % (24.0-44.0); MEAN CORPUSCULAR HEMOGLOBIN 30.4 pg (27.0-33.0); MEAN CORPUSCULAR HGB CONC 33.1 g/dl (32.0-36.5); MEAN CORPUSCULAR VOLUME 91.7 fl (80.0-96.0); MONO # 0.5 10^3/uL (0.0-0.8); MONO % 6.8 % (0.0-5.0); NEUTROPHILS # 4.4 10^3/uL (1.8-7.7); NEUTROPHILS % 64.3 % (36.0-66.0); PLATELET COUNT, AUTOMATED 217 10^3/uL (150-450); RED BLOOD COUNT 5.07 10^6/uL (4.30-6.10); WHITE BLOOD COUNT 6.8 10^3/uL (4.0-10.0)
[2018-07-03 15:19] LABS: BLOOD UREA NITROGEN 10 MG/DL (7-18); C REACTIVE PROTEIN QUANTITATIV 1.22 MG/DL (0.00-0.30); CALCIUM LEVEL 8.8 MG/DL (8.5-10.1); CARBON DIOXIDE LEVEL 28 MEQ/L (21-32); CHLORIDE LEVEL 106 MEQ/L (98-107); CREATININE FOR GFR 1.11 MG/DL (0.70-1.30); GLOMERULAR FILTRATION RATE > 60.0 (>60); GLUCOSE, FASTING 92 MG/DL (70-100); POTASSIUM SERUM 3.9 MEQ/L (3.5-5.1); SODIUM LEVEL 138 MEQ/L (136-145)
[2018-07-03 15:30] LABS: ERYTHROCYTE SEDIMENTATION RATE 2 mm/hr (0-15)
[2018-07-03 16:15] VITALS: BP 127/66
== END 2018-07-03 16:17 | disposition home or self-care (01) ==
LOC: M ED 13:46
DX: R51 Headache (principal)
CPT/HCPCS: 36415; 70450; 80048; 85025; 85652; 86140; 96361; 96374; 96375; 99284; J1200; J1885; J2765

== ENCOUNTER → 2018-09-25 | Outpatient (CLI) | payer MEDICAID ==
[~2018-09-25] MED LIST changes: +HYDR-3715 PO; +IBUP1TAB6; -NORCOTAB PO
== END ==
LOC: M OUTALCOH 09:23
PROVIDERS: ATTEND Psychiatry & Neurology Psychiatry
DX: F12.10 Cannabis abuse, uncomplicated (principal)

== ENCOUNTER → 2018-10-02 | Outpatient (CLI) | payer MEDICARE, MEDICAID | LOC: M PAIN 14:30 | PROVIDERS: ATTEND Anesthesiology | DX: Z01.818 Encounter for other preprocedural examination (principal); Z53.29 Procedure and treatment not carried out because of patient's decision for other reasons ==

== ENCOUNTER → 2018-10-17 | Outpatient (REF) | payer MEDICARE, MEDICAID ==
[2018-10-17 15:21] LABS: CHLAMYDIA DNA AMPLIFICATION NEGATIVE (NEGATIVE); GC DNA AMPLIFICATION NEGATIVE (NEGATIVE)
== END ==
LOC: M LAB REF 12:33
PROVIDERS: ATTEND Physician Assistant
DX: Z11.3 Encounter for screening for infections with a predominantly sexual mode of transmission (principal); Z72.89 Other problems related to lifestyle

== ENCOUNTER → 2018-10-26 | Outpatient (CLI) | payer OTHER ==
--- NOTE | 2018-11-05 00:11 | ECWPNPC ---
PATIENT NAME: MARGUERITE GARCAI : 1975 GENDER: MALE VISIT DATE: 10/26/2018 DISCHARGE DATE: 10/26/18 1009 VISIT LOCKED DATE TIME: PHYSICIAN: ANTONIO HENSON MD RESOURCE: ANTONIO HENSON MD REASON FOR APPOINTMENT 1. SPINAL TAP PRE-OP HISTORY OF PRESENT ILLNESS PAIN SCREENING: PATIENT HAS A COMPLAINT OF ACUTE OR CHRONIC PAIN :YES 43 YEAR OLD MALE PATIENT WITH A HISTORY OF NEUROLOGICAL SYMPTOMS INCLUDING DIZZINESS. THE PATIENT WAS REFERRED TO US BY DR. LUDWIG FOR A SPINAL TAP AND IS HERE TODAY FOR A PRE SEDATION PHYSICAL. THE PATIENT REPORTS RECENTLY BEING DIAGNOSED WITH MS. THE PATIENT SAYS THAT HE HAS BEEN HAVING SOME BOWEL CONTROL ISSUES. PATIENT DENIES UNEXPLAINABLE WEIGHT LOSS, FEVER, CHILLS, NEW CHANGES ON HIS URINARY CONTROL. FALL RISK SCREENING: SCREENING :NO FALLS REPORTED IN THE LAST YEAR CURRENT MEDICATIONS TAKING AMITRIPTYLINE HCL 25 MG TABLET 2 TABLETS AT BEDTIME ORALLY BEFORE BEDTIME TAKING SUMATRIPTAN SUCCINATE 100 MG TABLET HALF TO 1 TABLET NEEDED ORALLY AT ONSET OF HEADACHE MAY REPEAT AFTER 2 HOURS IF NEEDED TAKING CYCLOBENZAPRINE HCL 10 MG TABLET 1 TABLET NEEDED ORALLY THREE TIMES A DAY NOT-TAKING VERAPAMIL HCL 80 MG TABLET 1 TABLET ORALLY THREE TIMES A DAY MEDICATION LIST REVIEWED AND RECONCILED WITH THE PATIENT PAST MEDICAL HISTORY MULTIPLE SCLEROSIS - TESTING FOR CURRENTLY (10/2018) CHRONIC CLUSTER HEADACHE,INTRACTABLE CERVICALGIA SPONDYLOSIS RADICULOPATHY, CERVICAL REGION CARPAL TUNNEL SYNDROME, BILATERAL UPPER LIMBS VISUAL DISTURBANCES TIA ALLERGIES N.K.D.A. SURGICAL HISTORY DENIES PAST SURGICAL HISTORY FAMILY HISTORY FATHER: 75 YRS, DIAGNOSED WITH CANCER MOTHER: ALIVE 85 YRS, HYPERTENSION, CANCER SIBLINGS: ALIVE 58 YRS, HYPERTENSION SON(S): ALIVE 9 YRS DAUGHTER(S): ALIVE 16 YRS 1 SON(S) , 1 DAUGHTER(S) - HEALTHY. FATHER HAD PROSTATE CANCER, MOTHER IS A BREAST CANCER SURVIVOR. SOCIAL HISTORY GENERAL: TOBACCO USE ARE YOU A:CURRENT SMOKER ARE YOU INTERESTED IN QUITTING?NOT READY TO QUIT COUNSELED THE PATIENT ON SMOKING EFFECTS, EDUCATION [id number]/07/2019 HOW MANY CIGARETTES A DAY DO YOU SMOKE?6-10 HOW SOON AFTER YOU WAKE UP DO YOU SMOKE YOUR FIRST CIGARETTE?AFTER 60 MIN HOW OFTEN DO YOU SMOKE CIGARETTES?EVERY DAY PATIENT COUNSELED ON THE DANGERS OF TOBACCO USE AND URGED TO QUIT:10/26/2018 HIV / HEP-C SCREENING HIV TEST OFFERED TO PATIENT:YES DATE OFFERED:10/23/2018 TEST ACCEPTED:NO REASON:PATIENT DECLINED BROCHURE PROVIDED TO PATIENTNO HEP-C TEST OFFERED TO PATIENT:YES DATE OFFERED:10/23/2018 TEST ACCEPTED:NO REASON:PATIENT DECLINED OTHERS AT HOME: NONE. HOUSING: RENTS HOUSE. EDUCATION LEVEL OF EDUCATION:FINISHED HIGH SCHOOL DIET: REGULAR. 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?NO PAIN CLINIC PFS, CLERGY, PUBLIC HEALTH REFERRALS HAS THE PATIENT BEEN EDUCATED REGARDING HIS/HER PLAN OF CARE?YES HAS THE PATIENT BEEN EDUCATED REGARDING PAIN, THE RISK FOR PAIN, THE IMPORTANCE OF EFFECTIVE PAIN MANAGEMENT, AND THE PAIN ASSESSMENT PROCESS?YES LATEX QUESTIONNAIRE LATEX ALLERGY : HAVE YOU EVER DEVELOPED ANY TYPE OF REACTION AFTER HANDLING LATEX PRODUCTS SUCH RUBBER GLOVES, CONDOMS, DIAPHRAGMS, BALLOONS, SOCKS, OR UNDERWEAR?NO LATEX ALLERGY : HAVE YOU EVER DEVELOPED ANY TYPE OF REACTION DURING OR AFTER DENTAL APPOINTMENT, VAGINAL/RECTAL EXAMINATION, SURGICAL PROCEDURE, OR ANY OTHER EXPOSURE?NO LATEX RISK : HAVE YOU EVER HAD ANY DIFFICULTY BREATHING OR HIVES AFTER EATING OR HANDLING ANY FRUITS, OR VEGETABLES; SUCH KIWI, BANANAS, STONE FRUITS, OR CHESTNUTSNO LATEX RISK : DO YOU HAVE A PREVIOUS PERSONAL HISTORY OF MORE THAN NINE SURGERIES, SPINA BIFIDA, OR REPEATED CATHERTIZATIONS? NO LATEX RISK : ARE YOU FREQUENTLY EXPOSED TO LATEX PRODUCTS IN YOUR OCCUPATION?NO DATE ASKED : 10/23/2018 CAFFEINE CAFFEINE USE?YES HOW OFTEN AND HOW MUCH? 6 CUPS COFFEE DAILY ADVANCE DIRECTIVE ADVANCE DIRECTIVE DISCUSSED WITH PATIENT:YES DECLINED HCP INFORMATION AT THIS TIME. JAINISM [id number] NONE MARITAL STATUS: SINGLE. 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 SEXUAL HX HAD SEX IN THE LAST 12 MONTHS (VAGINAL, ORAL, OR ANAL)?YES WITHWOMEN ONLY USE PROTECTION?NO HAVE YOU EVER HAD AN STD?NO REVIEWED WITH PATIENT 10/26/18 2077 JS. HOSPITALIZATION/MAJOR DIAGNOSTIC PROCEDURE DENIES PAST HOSPITALIZATION REVIEW OF SYSTEMS REVIEWED BY: PROVIDER: ANTONIO HENSON MD . CONSTITUTIONAL: ANY CHANGE IN YOUR MEDICAL CONDITION? YES, MS DIAGNOSIS . CHILLS NO . FEVER NO . INFECTION: DO YOU HAVE NEW INFECTIONS? NO . DO YOU HAVE HISTORY OF MRSA? NO . MUSCULOSKELETAL: ANY NEW PATTERNS OF PAIN OR NUMBNESS? NO . SYTEMIC LUPUS NO . GASTROENTEROLOGY: ANY NEW CHANGE IN BOWEL CONTROL? NO . BARRETTS ESOPHAGUS NO . CIRRHOSIS NO . HEPATITIS NO . LIVER FAILURE NO . ACID REFLUX NO . UNEXPLAINED WEIGHT LOSS NO . GENITOURINARY: ANY NEW CHANGE IN BLADDER CONTROL? NO . IS THERE A CHANCE YOU COULD BE ? NO . HEMATOLOGY/LYMPH: DO YOU TAKE ANY BLOOD THINNERS? (FOR EXAMPLE- COUMADIN, PLAVIX, AGGRENOX, PLATEL, PRADAXA, OR XARELTO) NO . WHEN WAS YOUR LAST DOSE? DATE: TIME: . LOW PLATELET COUNT NO . SICKLE CELL DISEASE NO . VON WILLIEBRANDS NO . FACTOR V LEIDEN NO . THALLASEMIA NO . ANEMIA NO . EASY BRUISING NO . NEUROLOGY: HAVE YOU FALLEN IN THE PAST 12 MONTHS? NO . ANY NEW EXTREMITY NUMBNESS OR WEAKNESS? YES, RIGHT ARM WEAKNESS AND NUMBNESS - STARTED ABOUT A MONTH AND A HALF AGO . HEAD INJURY NO . DEMENTIA NO . CEREBRAL PALSY NO . MULTIPLE SCLEROSIS YES, SPINAL TAP TO BE PERFORMED FOR THIS REASON . DIZZINESS NO . HEADACHE NO . STROKES TIA APPROX 2 YEARS AGO . VERTIGO NO . CARDIOLOGY: DO YOU HAVE A PACEMAKER OR DEFIBRILLATOR? NO . ANGINA NO . HEART ATTACK NO . HEART SURGERY NO . CONGESTIVE HEART FAILURE/FLUID OVERLOAD NO . CHEST PAIN NO . HIGH BLOOD PRESSURE NO . IRREGULAR HEART BEAT NO . RESPIRATORY: HAVE YOU BEEN SICK IN THE PAST WEEK? NO . FEVER NO . FLU LIKE SYMPTOMS? NO . CPAP NO . BYPAP NO . ASTHMA NO . EMPHYSEMA NO . CHRONIC LUNG DISEASES NO . SHORTNESS OF BREATH ON EXERTION NO . COUGH NO . SNORING NO . INTEGUMENTARY: DO YOU HAVE ANY RASHES OR OPEN SORES? NO . ALLERGIC/IMMUNO: ARE YOU ALLERGIC TO IV DYE? NO . ANY NEW ALLERGIES? NO . PSYCHIATRIC: DO YOU HAVE THOUGHTS OF HURTING YOURSELF OR SOMEONE ELSE? NO . ARE YOU ABUSED, NEGLECTED, OR IN AN UNSAFE ENVIRONMENT? NO . ENDOCRINOLOGY: ARE YOU DIABETIC? NO . THYROID DISORDER NO . OTHER: DO YOU NEED ANY PRESCRIPTIONS? NO . IF YES, PLEASE LIST: ____ . ANY NEW PROBLEMS WITH YOUR MEDICATIONS? NO . WHEN DID YOU LAST EAT? ____ . WHEN DID YOU LAST DRINK? ____ . WHAT DID YOU LAST DRINK? ____ . NAME OF PERSON DRIVING YOU HOME? ____ . DO YOU HAVE ANY OTHER QUESTIONS OR CONCERNS NO . VITAL SIGNS WT 157.2 LBS, HT 5'9", BMI 23.21 INDEX, BP 136/74 MM HG, HR 74 /MIN, RR 18 /MIN, TEMP 98.3 F, OXYGEN SAT % 94%, SAFE IN ENV? (Y/N) YES, NA INITIALS AW 0906, REVIEWED BY: JS. EXAMINATION GENERAL EXAMINATION: PATIENT IS ALERT O X 3 AND COOPERATIVE. LUNGS CLEAR, TO AUSCULTATION. HEART: NO MURMURS OR GALLOPS; FACIAL CRANIAL NERVES ARE GROSSLY NORMAL. GOOD SYMMETRY OF FACIAL MUSCLE MOVEMENT. NORMAL VISUAL STEWART. TENDERNESS OVER THE NECK AND RIGHT SHOULDER. ASSESSMENTS NEUROLOGICAL SYMPTOMS - R29.90 (PRIMARY) MS PROTOCOL. TREATMENT NEUROLOGICAL SYMPTOMS CLINICAL NOTES: WE DISCUSSED SEVERAL ISSUES WITH MR. GARCIA'S CASE. THE PATIENT WILL COME IN FOR A SPINAL TAP IN A FEW WEEKS. WE DISCUSSED THE BENEFITS AND RISKS OF THE PROCEDURE AND THE PATIENT WOULD LIKE TO PROCEED. THE PATIENT WAS ALSO ENCOURAGED TO DISCUSS HIS BOWEL PROBLEMS WITH HIS PRIMARY CARE PHYSICIAN. INSTRUCTIONS WERE GIVEN, QUESTIONS WERE ANSWERED, PATIENT REPORTS UNDERSTANDING AND AGREES WITH THE PLAN. I, FANG COLVIN, DOCUMENTED THE ABOVE INFORMATION ACTING A SCRIBE FOR DR. HENSON. I HAVE REVIEWED THE ABOVE DOCUMENT, WRITTEN BY FANG CARTER AND I VERIFY THAT IT IS ACCURATE. . PROCEDURE CODES FA211 ESTABILISHED PATIENT [facility] FACILITY CHARGE G8427 CURRENT MEDS W/DOSAGES DOCUMENTED G8730 PAIN ASSESS POS TOOL F/U PLAN DOC DISPOSITION & COMMUNICATION FOLLOW UP SPINAL TAP (REASON: WITHIN 30 DAYS) ELECTRONICALLY SIGNED BY ANTONIO HENSON MD, MD ON 11/04/2018 AT 08:57 PM EDT DISCLAIMER : THIS IS A VISIT SUMMARY EXTRACTED FROM THE [employer] CHART. IT IS NOT A COPY OF THE [employer] PROGRESS NOTE. MTDD
== END ==
LOC: M PAIN 09:15
PROVIDERS: ATTEND Anesthesiology
DX: R29.90 Unspecified symptoms and signs involving the nervous system (principal); G35 Multiple sclerosis; Z79.899 Other long term (current) drug therapy; F17.210 Nicotine dependence, cigarettes, uncomplicated

== ENCOUNTER 2018-11-15 08:00 | Outpatient (RCR) | payer MEDICARE, MEDICAID | END 2018-11-18 | LOC: M OUTALCOH 08:00 | PROVIDERS: ATTEND Psychiatry & Neurology Psychiatry | DX: F10.10 Alcohol abuse, uncomplicated (principal); F12.10 Cannabis abuse, uncomplicated; F17.200 Nicotine dependence, unspecified, uncomplicated ==

== ENCOUNTER → 2018-12-19 | Outpatient (RCR) | payer MEDICAID, MEDICARE | LOC: M OUTALCOH 11-20 15:43 | PROVIDERS: ATTEND Psychiatry & Neurology Psychiatry | DX: F12.10 Cannabis abuse, uncomplicated (principal); F10.10 Alcohol abuse, uncomplicated; F15.20 Other stimulant dependence, uncomplicated; F17.200 Nicotine dependence, unspecified, uncomplicated ==

== ENCOUNTER 2018-12-24 08:45 | Outpatient (RCR) | payer MEDICARE, MEDICAID | END 2019-01-19 | LOC: M OUTALCOH 08:45 | PROVIDERS: ATTEND Psychiatry & Neurology Psychiatry | DX: F12.10 Cannabis abuse, uncomplicated (principal); F17.200 Nicotine dependence, unspecified, uncomplicated; F10.10 Alcohol abuse, uncomplicated; F15.20 Other stimulant dependence, uncomplicated ==